=== PATIENT | male | born 1950 | race Caucasian/White ===

== ENCOUNTER 2024-01-23 07:14 | Inpatient (IN) | payer MEDICARE, BC ==
[~2024-01-23] VITALS: Ht 170.2 cm; Wt 72.1 kg
[2024-01-23] MEDS ORDERED: FINA5TAB11 PO (07:32)
[2024-01-23] MEDS ORDERED: FLUT16SP BNOSTRILS (07:32)
[2024-01-23] MEDS ORDERED: METO-356 PO (07:32)
[2024-01-23] MEDS ORDERED: FLUO10CA29 PO (07:32)
[2024-01-23] MEDS ORDERED: SIMV-46 PO (07:32)
[2024-01-23] MEDS ORDERED: APIX5TAB4 PO (07:32)
[2024-01-23] MEDS ORDERED: MAGN500P33 MC (07:32)
[2024-01-23] MEDS ORDERED: OMEG-83 PO (07:32)
[2024-01-23] MEDS ORDERED: TAMS-3 PO (07:32)
[2024-01-23] MEDS ORDERED: MULT-594 PO (07:32)
[2024-01-23 07:57] LABS: BASOPHILS % (AUTO) 0.3 % (0.0-2.0); EOSINOPHILS % (AUTO) 0.7 % (0.0-7.0); HEMATOCRIT 38.4 % (36.7-47.1); HEMOGLOBIN 13.2 g/dL (12.5-16.3); LYMPHOCYTES # (AUTO) 0.5 K/uL (0.8-4.8); LYMPHOCYTES % (AUTO) 7.8 % (20.5-51.5); MEAN CORPUSCULAR HEMOGLOBIN 30.3 uug (23.8-33.4); MEAN CORPUSCULAR HGB CONC 34 g/dL (32.5-36.3); MEAN CORPUSCULAR VOLUME 88.2 fL (73.0-96.2); MONOCYTES # (AUTO) 0.4 K/uL (0.1-1.30); MONOCYTES % (AUTO) 6.4 % (0.0-11.0); NEUTROPHILS # (AUTO) 5.6 K/uL (1.8-8.9); NEUTROPHILS % (AUTO) 84.8 % (38.5-71.5); PLATELET COUNT (AUTO) 136 K/uL (152-348); RED BLOOD CELL COUNT(AUTO) 4.35 MIL/uL (4.06-5.63); RED CELL DISTRIBUTION WIDTH 13.8 % (12.1-16.2); WHITE BLOOD COUNT (AUTO) 6.6 K/uL (3.6-10.2)
[2024-01-23 08:09] LABS: CALCIUM 8.5 mg/dL (8.5-10.1); CARBON DIOXIDE 27 mmol/L (21-32); CHLORIDE 106 mmol/L (98-107); CREATININE 1.2 mg/dL (0.6-1.3); GLUCOSE 112 mg/dL (74-106); POTASSIUM 4.4 mmol/L (3.5-5.1); SODIUM SERUM 139 mmol/L (136-145); UREA NITROGEN, BLOOD 32 mg/dL (7-18)
[2024-01-23 08:20] LABS: DIFFERENTIAL COMMENT 1
[2024-01-23 08:23] LABS: ALANINE AMINOTRANSFERASE 102 U/L (16-63); ALBUMIN 3.7 g/dL (3.4-5.0); ALKALINE PHOSPHATASE 95 U/L (50-136); ASPARTATE AMINOTRANSFERASE 62 U/L (15-37); BILIRUBIN,DIRECT 0.2 mg/dL (0.0-0.2); BILIRUBIN,TOTAL 0.9 mg/dL (0.2-1.0); NT-PRO BNP 5683 pg/mL (0-125); TOTAL PROTEIN, SERUM 6.2 g/dL (6.4-8.2)
[2024-01-23] MEDS: FUROSEMIDE 20 MG/2 ML VIAL IVP ONE (08:45)
[2024-01-23] MEDS: NITROGLYCERIN OINT 1 GM PACKET TP ONE (08:45)
[2024-01-23] MEDS: APIXABAN 5 MG TABLET PO SCH (09:29)
[2024-01-23] MEDS: FLUOXETINE HCL 10 MG CAPSULE PO SCH (09:30)
[2024-01-23] MEDS: METOPROLOL SUCCINATE XL 25 MG TAB.SR.24H PO SCH (09:30)
[2024-01-23] MEDS: FINASTERIDE 5 MG TABLET PO SCH (09:30)
[2024-01-23] MEDS ORDERED: FUROSEMIDE 40 MG/4 ML VIAL ONE (09:50)
[2024-01-23] MEDS ORDERED: NITROGLYCERIN OINT 1 GM PACKET TP ONE (09:50)
[2024-01-23] MEDS ORDERED: HYDROCODONE/APAP 5-325MG TABLET PO PRN (10:00)
[2024-01-23] MEDS ORDERED: ONDANSETRON 4 MG/2 ML VIAL IV PRN (10:00)
[2024-01-23] MEDS ORDERED: MORPHINE SULFATE 2 MG/1 ML DISP.SYRIN IV PRN (10:00)
[2024-01-23] MEDS ORDERED: ACETAMINOPHEN 325 MG TABLET PO PRN (10:00)
[2024-01-23] MEDS ORDERED: MAGNESIUM HYDROXIDE 30 ML LIQUID UDC PO PRN (10:00)
[2024-01-23] MEDS ORDERED: REMEDY ESSENTIAL ZINC PASTE 113 GM TP PRN (10:00)
[2024-01-23] MEDS ORDERED: NITROGLYCERIN 0.4 MG/TAB BOTTLE SL PRN (10:00)
[2024-01-23] MEDS ORDERED: TEMAZEPAM 15 MG CAPSULE PO PRN (10:00)
[2024-01-23 11:00] VITALS: BP 120/63; TEMP 97.9; O2SAT 97
[2024-01-23 15:00] VITALS: BP 98/66; TEMP 98; O2SAT 96
[2024-01-23] MEDS ORDERED: Medication Not On Formulary EA (Apixaban (Eliquis) 5 MG) PO SCH (17:00)
[2024-01-23] MEDS: TAMSULOSIN HCL 0.4 MG CAP.SR.24H PO SCH (18:08)
[2024-01-23 20:00] VITALS: BP 116/78; TEMP 98.5; O2SAT 96
[2024-01-23] MEDS: SIMVASTATIN 20 MG TABLET PO SCH (20:20)
[2024-01-24] VITALS: BP 103/68; TEMP 97.7; O2SAT 97
[2024-01-24 04:00] VITALS: BP 116/78; TEMP 98.5; O2SAT 97
[2024-01-24 06:15] LABS: BASOPHILS % (AUTO) 0.4 % (0.0-2.0); EOSINOPHILS # (AUTO) 0.1 K/uL (0.0-0.7); EOSINOPHILS % (AUTO) 1.5 % (0.0-7.0); HEMOGLOBIN 11.7 g/dL (12.5-16.3); LYMPHOCYTES # (AUTO) 0.7 K/uL (0.8-4.8); LYMPHOCYTES % (AUTO) 12.9 % (20.5-51.5); MEAN CORPUSCULAR HGB CONC 35 g/dL (32.5-36.3); MEAN CORPUSCULAR VOLUME 87.6 fL (73.0-96.2); MONOCYTES # (AUTO) 0.6 K/uL (0.1-1.30); MONOCYTES % (AUTO) 10.2 % (0.0-11.0); NEUTROPHILS # (AUTO) 4.3 K/uL (1.8-8.9); PLATELET COUNT (AUTO) 115 K/uL (152-348); RED BLOOD CELL COUNT(AUTO) 3.76 MIL/uL (4.06-5.63); RED CELL DISTRIBUTION WIDTH 13.8 % (12.1-16.2); WHITE BLOOD COUNT (AUTO) 5.8 K/uL (3.6-10.2)
[2024-01-24] MEDS: PANTOPRAZOLE SODIUM 40 MG TABLET.DR PO SCH (06:23)
[2024-01-24 06:26] LABS: DIFFERENTIAL COMMENT 1
[2024-01-24 06:29] LABS: CALCIUM 8.1 mg/dL (8.5-10.1); CARBON DIOXIDE 26 mmol/L (21-32); CHLORIDE 108 mmol/L (98-107); CHOLESTEROL 111 mg/dL (<200); CREATININE 1.2 mg/dL (0.6-1.3); GLUCOSE 94 mg/dL (74-106); HDL CHOLESTEROL 63 mg/dL (40-60); MAGNESIUM 2.1 mg/dL (1.8-2.4); PHOSPHOROUS 3.1 mg/dL (2.5-4.9); POTASSIUM 3.5 mmol/L (3.5-5.1); SODIUM SERUM 141 mmol/L (136-145); TRIGLYCERIDES 57 MG/DL (30-150); UREA NITROGEN, BLOOD 30 mg/dL (7-18)
[2024-01-24 08:00] VITALS: BP 124/71; TEMP 97.4
[2024-01-24] MEDS: OMEGA-3 FATTY ACIDS/FISH OIL CAPSULE PO SCH (08:28)
[2024-01-24] MEDS: FLUOXETINE HCL 10 MG CAPSULE PO SCH (08:29)
[2024-01-24] MEDS: MULTIVIT, IRON, MIN NO. 8, FA TABLET PO SCH (08:29)
[2024-01-24] MEDS: FUROSEMIDE 40 MG/4 ML VIAL IV SCH (08:36)
[2024-01-24] MEDS: FLUTICASONE PROP NASAL SPRAY 16 GM BOTTLE NS SCH (08:37)
[2024-01-24 10:34] VITALS: TEMP 97.4
[2024-01-24 11:51] VITALS: BP 126/86; TEMP 97.8; O2SAT 95
== END 2024-01-24 12:25 | disposition home or self-care (01) | DRG 291 ==
LOC: ER 07:14 → TELE3 10:29
PROVIDERS: ADMIT Nurse Practitioner Acute Care; ATTEND Nurse Practitioner Acute Care
DX: I11.0 Hypertensive heart disease with heart failure (principal); I50.43 Acute on chronic combined systolic (congestive) and diastolic (congestive) heart failure; I48.20 Chronic atrial fibrillation, unspecified; I42.9 Cardiomyopathy, unspecified; I48.0 Paroxysmal atrial fibrillation; G47.33 Obstructive sleep apnea (adult) (pediatric); E78.5 Hyperlipidemia, unspecified; K46.9 Unspecified abdominal hernia without obstruction or gangrene; N40.0 Benign prostatic hyperplasia without lower urinary tract symptoms; Z79.01 Long term (current) use of anticoagulants; F32.A Depression, unspecified; Z79.899 Other long term (current) drug therapy; Z98.890 Other specified postprocedural states; Z86.16 Personal history of COVID-19
CPT/HCPCS: 36415; 71045; 83735; 84100; 84443; 84484; 85025; 85730; 93005; 93307; G0378; J1940; J3535

== ENCOUNTER 2024-02-01 06:08 | Emergency (ER) | payer MEDICARE, BC ==
[~2024-02-01] VITALS: Ht 170.2 cm; Wt 69.4 kg
[~2024-02-01 06:08] MED LIST: APIX5TAB4 PO; FINA5TAB11 PO; FLUO10CA29 PO; FLUT16SP BNOSTRILS; MAGN500P33 MC; METO-356 PO; MULT-594 PO; OMEG-83 PO; SIMV-46 PO; TAMS-3 PO
[2024-02-01 06:59] VITALS: O2SAT 97
[2024-02-01] MEDS: IPRATROPIUM BROMIDE 0.5 MG/2.5 ML NEBU NEB ONE (06:59)
[2024-02-01] MEDS: ALBUTEROL SULFATE 2.5 MG/3 ML NEBU NEB ONE (06:59)
[2024-02-01] MEDS ORDERED: IPRATROPIUM BROMIDE 0.5 MG/2.5 ML NEBU ONE (07:01)
[2024-02-01] MEDS ORDERED: ALBUTEROL SULFATE 2.5 MG/3 ML NEBU ONE (07:01)
[2024-02-01 07:14] VITALS: O2SAT 100
[2024-02-01] MEDS: MORPHINE SULFATE 2 MG/1 ML DISP.SYRIN IV ONE (07:15)
[2024-02-01 08:22] LABS: BASOPHILS % (AUTO) 0.5 % (0.0-2.0); EOSINOPHILS # (AUTO) 0.1 K/uL (0.0-0.7); EOSINOPHILS % (AUTO) 1.1 % (0.0-7.0); HEMATOCRIT 39.6 % (36.7-47.1); HEMOGLOBIN 13.4 g/dL (12.5-16.3); LYMPHOCYTES # (AUTO) 0.6 K/uL (0.8-4.8); LYMPHOCYTES % (AUTO) 9.2 % (20.5-51.5); MEAN CORPUSCULAR HEMOGLOBIN 29.9 uug (23.8-33.4); MEAN CORPUSCULAR HGB CONC 34 g/dL (32.5-36.3); MEAN CORPUSCULAR VOLUME 88.3 fL (73.0-96.2); MONOCYTES # (AUTO) 0.4 K/uL (0.1-1.30); MONOCYTES % (AUTO) 6.7 % (0.0-11.0); NEUTROPHILS # (AUTO) 5.5 K/uL (1.8-8.9); NEUTROPHILS % (AUTO) 82.5 % (38.5-71.5); PLATELET COUNT (AUTO) 119 K/uL (152-348); RED BLOOD CELL COUNT(AUTO) 4.48 MIL/uL (4.06-5.63); RED CELL DISTRIBUTION WIDTH 14.2 % (12.1-16.2); WHITE BLOOD COUNT (AUTO) 6.7 K/uL (3.6-10.2)
[2024-02-01 08:26] LABS: DIFFERENTIAL COMMENT 1
[2024-02-01 08:37] LABS: CALCIUM 8.3 mg/dL (8.5-10.1); CARBON DIOXIDE 26 mmol/L (21-32); CHLORIDE 107 mmol/L (98-107); CREATININE 1.2 mg/dL (0.6-1.3); GLUCOSE 115 mg/dL (74-106); POTASSIUM 4.4 mmol/L (3.5-5.1); SODIUM SERUM 141 mmol/L (136-145); UREA NITROGEN, BLOOD 27 mg/dL (7-18)
[2024-02-01 08:42] LABS: ALANINE AMINOTRANSFERASE 85 U/L (16-63); ALBUMIN 3.4 g/dL (3.4-5.0); ALKALINE PHOSPHATASE 87 U/L (50-136); ASPARTATE AMINOTRANSFERASE 44 U/L (15-37); BILIRUBIN,DIRECT 0.2 mg/dL (0.0-0.2); BILIRUBIN,TOTAL 0.8 mg/dL (0.2-1.0); NT-PRO BNP 10693 pg/mL (0-125); TOTAL PROTEIN, SERUM 6.1 g/dL (6.4-8.2)
[2024-02-01] MEDS: FUROSEMIDE 40 MG/4 ML VIAL IV ONE (09:03)
[2024-02-01] MEDS ORDERED: FUROSEMIDE 40 MG/4 ML VIAL ONE (09:03)
[2024-02-01] MEDS ORDERED: FURO20TA4 PO (10:05)
[2024-02-01 10:30] VITALS: O2SAT 98
== END 2024-02-01 11:23 | disposition home or self-care (01) ==
LOC: ER 06:09
DX: I50.21 Acute systolic (congestive) heart failure (principal); I48.91 Unspecified atrial fibrillation; Z79.899 Other long term (current) drug therapy
CPT/HCPCS: 99285; 96374; 71045; 80076; 80048; 83880; 85025; 85379; 85730; 84484; 36415; 93005; 94640; J1940; 94760; A4606; A4663; J3590